=== PATIENT | male | born 1965 | race Caucasian/White ===

== ENCOUNTER 2017-10-02 16:00 | Emergency (ER) | payer OTHER ==
[~2017-10-02] VITALS: Ht 190.5 cm; Wt 87.0 kg
[2017-10-02 16:33] VITALS: BP 167/99; PULSE 72; RESP 20; TEMP 99.4
[2017-10-02] MEDS ORDERED: BLOOD PRESSURE MED (16:42)
[2017-10-02] MEDS ORDERED: ASPI-516 CHEW (16:42)
[2017-10-02 17:17] LABS: AUTOMATED NEUTROPHIL # 3.9 TH/MM3 (1.8-7.7); BASOPHIL % 0.7 % (0.0-2.0); EOSINOPHIL # 0.4 TH/MM3 (0-0.4); EOSINOPHIL % 6.6 % (0.0-4.0); HEMOGLOBIN 12.6 GM/DL (13.0-17.0); LYMPH % 17.1 % (9.0-44.0); LYMPHOCYTE # 1.1 TH/MM3 (1.0-4.8); MEAN CELL VOLUME 93.1 FL (80.0-100.0); MEAN CORPUSCULAR HEMOGLOBIN 32.5 PG (27.0-34.0); MEAN CORPUSCULAR HGB CONC 34.9 % (32.0-36.0); MEAN PLATELET VOLUME 8.7 FL (7.0-11.0); MONO % 16.6 % (0.0-8.0); MONOCYTE # 1.1 TH/MM3 (0-0.9); PLATELET COUNT 179 TH/MM3 (150-450); RED BLOOD COUNT 3.87 MIL/MM3 (4.50-5.90); RED CELL DISTRIBUTION WIDTH 13.2 % (11.6-17.2); WHITE BLOOD COUNT 6.6 TH/MM3 (4.0-11.0)
[2017-10-02 17:24] LABS: PROTHROMBIN TIME - PATIENT 10.6 SEC (9.8-11.6)
[2017-10-02] MEDS ORDERED: ACETAMINOPHEN/HYDROcodone 325 MG/5 MG TAB PO ONE (17:30)
[2017-10-02 17:49] LABS: BICARBONATE 29.1 MEQ/L (21.0-32.0); CALCIUM 8.2 MG/DL (8.5-10.1); CREATININE 0.94 MG/DL (0.60-1.30)
--- NOTE | 2017-10-02 17:57 | RADRPT ---
EXAM DATE/TIME: 10/02/2017 17:36 [place] COMPARISON: No previous studies available for comparison. INDICATIONS : Trauma; rib fractures. RADIATION DOSE: 10.29 CTDIvol (mGy) MEDICAL HISTORY : Hypertension. SURGICAL HISTORY : None. ENCOUNTER: Initial ACUITY: 1 day PAIN SCALE: 7/10 LOCATION: Left chest TECHNIQUE: Volumetric scanning of the chest was performed. Using automated exposure control and adjustment of t he mA and/or kV according to patient size, radiation dose was kept as low as reasonably achievable to obtain optimal diagnostic quality images. DICOM format image data is available electronically for r eview and comparison. Follow-up recommendations for detected pulmonary nodules are based at a minimum on nodule size and pa tient risk factors according to Fleischner Society Guidelines. FINDINGS: The right lung is clear. \ Minimal parenchymal changes left base without pneumothorax. The parenchymal changes are probably contusion. Nondisplaced left lower rib fractures are noted . Pelvic contusion. There is no axillary adenopathy. There is no mediastinal adenopathy. Portion of the liver and spleen identified are free of focal defects although the entire spleen is not visualized. CONCLUSION: Left lower rib fractures with apparent parenchymal contusion There is no pneumothorax. Maxi Medel MD FACR on October 02, 2017 at 17:52 Board Certified Radiologist. This report was verified electronically.
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
== END 2017-10-02 18:37 | disposition home or self-care (01) ==
LOC: NEPD 16:00
DX: S22.32XA Fracture of one rib, left side, initial encounter for closed fracture (principal); I10 Essential (primary) hypertension; W06.XXXA Fall from bed, initial encounter; Z79.82 Long term (current) use of aspirin
CPT/HCPCS: 71250; 80048; 85025; 85610; 85730; 99284